=== PATIENT | female | born 1955 | race African-American/Black ===

== ENCOUNTER 2016-12-22 22:51 | Emergency (ER) | payer OTHER ==
[~2016-12-22] VITALS: Ht 167.6 cm; Wt 98.7 kg
[~2016-12-22 22:51] MED LIST: ALPRAZOLAM0.25 M2 PO; ASPIR-TRIN325 M1 PO; ATARAX,VISTARIL50 MG PO; ATIVAN0.5 MG PO; BACTRIM,SEPT1 TABLET PO; IBUPROFEN800 MG PO; NOHOMEMEDS; NORVASC5 MG PO; PRILOSEC40 MG PO; XANAX0.25 MG PO; ZANTAC150 MG PO
[2016-12-23 02:56] LABS: HEMATOCRIT 39.5 % (36.0-46.0); MCH 28.3 PG (29.0-34.0); MCHC 32.4 G/DL (30.0-36.0); MCV 87.2 FL (83-99); MEAN PLAT.VOLUME 11.4 uM^3 (9.5-12.4); PLATELET COUNT 400 K/uL (156-360); RBC DIS.WIDTH-CV 14.1 % (11.8-14.6); RBC DIS.WIDTH-SD 45.1 % (39-53); RED BLOOD COUNT 4.53 M/uL (3.80-5.20); WHITE BLOOD COUNT 14.5 K/uL (4.1-10.2)
[2016-12-23 03:08] LABS: GLUCOSE 110 mg/dL (70-99)
[2016-12-23 03:12] LABS: GFR ESTIMATE (CALCULATED) > 59 mL/min/
[2016-12-23 03:13] LABS: UREA NITROGEN (BUN) 16 mg/dL (9-23)
[2016-12-23 03:21] LABS: TROP-I INTERPRETATION NEGATIVE; TROPONIN-I < 0.01 ng/mL (0.0-0.30)
[2016-12-23] MEDS ORDERED: XANAX0.25 MG PO (03:25)
[2016-12-23 03:59] LABS: CHLORIDE 107 mEq/L (99-109); SODIUM 140 mEq/L (136-147)
[2016-12-23 04:02] LABS: ANION GAP 8 MEQ/L (2-14)
[2016-12-23 04:04] VITALS: BP 146/124
== END 2016-12-23 04:06 | disposition home or self-care (01) ==
LOC: EME 22:51
PROVIDERS: Emergency Medicine
DX: F41.9 Anxiety disorder, unspecified (principal); R07.89 Other chest pain; I10 Essential (primary) hypertension; D72.829 Elevated white blood cell count, unspecified; I25.2 Old myocardial infarction; F17.200 Nicotine dependence, unspecified, uncomplicated
CPT/HCPCS: 71020; 80048; 84484; 85027; 93005; 99281; 99283

== ENCOUNTER 2017-04-11 11:07 | Emergency (ER) | payer OTHER ==
[~2017-04-11] VITALS: Ht 165.1 cm; Wt 95.9 kg
[2017-04-11 13:28] LABS: HEMATOCRIT 41.2 % (36.0-46.0); MCH 27.5 PG (29.0-34.0); MCHC 31.6 G/DL (30.0-36.0); MCV 87.3 FL (83-99); RBC DIS.WIDTH-CV 14.3 % (11.8-14.6); RBC DIS.WIDTH-SD 46.1 % (39-53); RED BLOOD COUNT 4.72 M/uL (3.80-5.20); WHITE BLOOD COUNT 16.4 K/uL (4.1-10.2)
[2017-04-11 13:39] LABS: ADD MIUA? YES; BILIRUBIN NEGATIVE; BLOOD MODERATE; COLOR YELLOW ((YELLOW)); GLUCOSE (STRIP) NEGATIVE; KETONES NEGATIVE; LEUKOCYTES NEGATIVE; NITRITE NEGATIVE; PROTEIN (STRIP) 30; SPECIFIC GRAVITY 1.017 (1.000-1.030); UROBILINOGEN 0.2 MG/DL (0.2-1.0)
[2017-04-11 13:44] LABS: CHLORIDE 107 mEq/L (99-109); SODIUM 142 mEq/L (136-147)
[2017-04-11 13:46] LABS: GLUCOSE 88 mg/dL (70-99)
[2017-04-11 13:47] LABS: ANION GAP 10 MEQ/L (2-14)
[2017-04-11 13:48] LABS: TOTAL BILIRUBIN 0.7 mg/dL (0.0-1.0)
[2017-04-11 13:49] LABS: BACTERIA RARE /HPF; EPITHELIAL CELLS RARE /HPF; MUCUS TRACE /LPF; RED BLOOD CELLS 0-5 /HPF (0-5); UCUL ADDED? NO; WHITE BLOOD CELLS 0-5 /HPF (0-5)
[2017-04-11 13:50] LABS: ALKALINE PHOSPHATASE 92 IU/L (3-129); GFR ESTIMATE (CALCULATED) > 59 mL/min/
[2017-04-11 13:51] LABS: UREA NITROGEN (BUN) 7 mg/dL (9-23)
[2017-04-11 14:03] LABS: MEAN PLAT.VOLUME 11.2 uM^3 (9.5-12.4); PLAT.SUFFICIENCY ADEQUATE; PLATELET COUNT 372 K/uL (156-360)
[2017-04-11] MEDS ORDERED: XANAX0.25 MG PO (14:28)
[2017-04-11 18:00] VITALS: BP 119/82
[2017-04-11] MEDS ORDERED: CIPRO500 MG PO (18:10)
[2017-04-11] MEDS ORDERED: NORCO 5/3251 TABLET PO (18:10)
[2017-04-11] MEDS ORDERED: FLAGYL500 MG PO (18:10)
== END 2017-04-11 18:26 | disposition home or self-care (01) ==
LOC: EME 11:07
DX: K57.32 Diverticulitis of large intestine without perforation or abscess without bleeding (principal); N27.0 Small kidney, unilateral; N20.0 Calculus of kidney; I10 Essential (primary) hypertension; I25.2 Old myocardial infarction; F41.9 Anxiety disorder, unspecified; F17.200 Nicotine dependence, unspecified, uncomplicated
CPT/HCPCS: 74177; 80053; 81003; 85027; 99281; 99285; J7030

== ENCOUNTER 2017-04-18 03:09 | Emergency (ER) | payer OTHER ==
[~2017-04-18] VITALS: Ht 165.1 cm; Wt 96.5 kg
[~2017-04-18 03:09] MED LIST changes: +CIPRO500 MG PO; +FLAGYL500 MG PO; +NORCO 5/3251 TABLET PO
[2017-04-18 04:23] VITALS: BP 161/99
== END 2017-04-18 04:23 | disposition home or self-care (01) ==
LOC: EME 03:09
DX: M54.31 Sciatica, right side (principal); F17.200 Nicotine dependence, unspecified, uncomplicated
CPT/HCPCS: 99281; 99283; J1885